=== PATIENT | male | born 1950 | race Caucasian/White ===

== ENCOUNTER 2018-01-09 12:22 | Emergency (ER) | payer MEDICARE ==
[~2018-01-09] VITALS: Ht 180.3 cm; Wt 79.5 kg
[2018-01-09 12:53] LABS: BASOPHILS % (AUTO) 0.5 % (0-1); EOSINOPHILS # (AUTO) 0.3 X10'3 (0-0.9); EOSINOPHILS % (AUTO) 3.6 % (0-6); HEMATOCRIT 42.9 % (42.0-52.0); LYMPHOCYTES # (AUTO) 2.2 X10'3 (1.1-4.8); LYMPHOCYTES % (AUTO) 29.3 % (21-51); MEAN CORPUSCULAR HEMOGLOBIN 34.2 PG (27.0-31.0); MEAN CORPUSCULAR HGB CONC 35.1 % (33.0-36.5); MEAN CORPUSCULAR VOLUME 97.6 FL (78-98); MEAN PLATELET VOLUME 7.8 FL (7.4-10.4); MONOCYTES # (AUTO) 0.8 X10'3 (0-0.9); MONOCYTES % (AUTO) 10.1 % (2-12); NEUTROPHILS # (AUTO) 4.2 X10'3 (1.8-7.7); NEUTROPHILS % (AUTO) 56.5 % (42-75); PLATELET COUNT 273 X10'3 (140-440); RED BLOOD COUNT 4.39 X10'6 (4.70-6.10); RED CELL DISTRIBUTION WIDTH 12.9 % (11.5-14.5); WHITE BLOOD COUNT 7.4 X10'3 (4.5-11.0)
[2018-01-09 13:03] LABS: PARTIAL THROMBOPLASTIN TIME 24 SECONDS (22-32)
[2018-01-09 13:08] LABS: ALANINE AMINOTRANSFERASE 18 U/L (12-78); ALBUMIN 3.2 G/DL (3.4-5.0); ALBUMIN/GLOBULIN RATIO 0.7 (1.1-1.5); ALKALINE PHOSPHATASE 130 IU/L (46-116); ASPARTATE AMINO TRANSFERASE 18 U/L (10-37); BILIRUBIN,TOTAL 0.3 MG/DL (0.1-1.0); BLOOD UREA NITROGEN 6 MG/DL (7-18); BUN/CREATININE RATIO 6.5 (5.4-32.0); CALCIUM 9.4 MG/DL (8.5-10.1); CREATININE 0.92 MG/DL (0.60-1.10); GLUCOSE 175 MG/DL (70-104); TOTAL CARBON DIOXIDE 27.2 MMOL/L (24-32); TOTAL PROTEIN 7.8 G/DL (6.4-8.2); eGFR 82 ML/MIN
[2018-01-09 13:15] LABS: ANION GAP 10 (8-16); CHLORIDE 100 MMOL/L (99-107); POTASSIUM 4.3 MMOL/L (3.5-5.1); SODIUM 137 MMOL/L (135-145)
[2018-01-09 13:56] VITALS: BP 139/88
== END 2018-01-09 14:03 | disposition home or self-care (01) ==
LOC: ER 12:22
DX: R07.89 Other chest pain (principal); M25.512 Pain in left shoulder; F17.200 Nicotine dependence, unspecified, uncomplicated; G89.29 Other chronic pain; I25.10 Atherosclerotic heart disease of native coronary artery without angina pectoris; Z88.2 Allergy status to sulfonamides; Z95.1 Presence of aortocoronary bypass graft
CPT/HCPCS: 36415; 71045; 73030; 80053; 84484; 85025; 85610; 85730; 93005; 99285

== ENCOUNTER 2018-01-11 09:09 | Day surgery (SDC) | payer MEDICARE ==
[~2018-01-11] VITALS: Ht 175.3 cm; Wt 87.9 kg
[2018-01-11] VITALS (10 sets, daily range): BP systolic 111–136; BP diastolic 70–96
[2018-01-11] MEDS ORDERED: diphenhydrAMINE 25mg capsule PO PRN (09:45)
[2018-01-11] MEDS ORDERED: LORazepam 0.5 MG tablet PO PRN (09:45)
[2018-01-11] MEDS ORDERED: normal saline 1000ml 1,000 ML IV SCH (09:45)
[2018-01-11] MEDS ORDERED: INSU100C10 SQ (09:58)
[2018-01-11] MEDS ORDERED: OXYC-658 PO (09:58)
[2018-01-11] MEDS ORDERED: iohexol 350MG/ML 100ml bottle IV ONE ×2 (10:38→11:44)
[2018-01-11] MEDS ORDERED: nitroGLYCERIN-Tridil 50MG/D5W 250 ML IV ONE (10:38)
[2018-01-11] MEDS ORDERED: LIDOcaine 1% w/EPI 1:100,000 30ml vial (MDV) ONE (10:38)
[2018-01-11] MEDS ORDERED: iohexol 350 MG/ML 50ML vial IV ONE (10:38)
[2018-01-11] MEDS ORDERED: heparin 1,000unit/ml 10ml vial 10 ML ONE (10:38)
[2018-01-11] MEDS ORDERED: midazolam 2 mg/2 ml injection ONE (11:08)
[2018-01-11] MEDS ORDERED: fentaNYL/PF 50MCG/1 ML 2ML syringe ONE (11:09)
[2018-01-11] MEDS ORDERED: oxyCODONE IR 5mg (immed. release) tablet PO PRN (13:05)
[2018-01-11] MEDS ORDERED: insulin Lispro (HumaLOG) vial - multi-dose SQ SCH (21:00)
== END 2018-01-11 17:00 | disposition home or self-care (01) ==
LOC: SSTAY O 09:09
PROVIDERS: ATTEND Internal Medicine Cardiovascular Disease
DX: I25.118 Atherosclerotic heart disease of native coronary artery with other forms of angina pectoris (principal); I10 Essential (primary) hypertension; E11.9 Type 2 diabetes mellitus without complications; E78.5 Hyperlipidemia, unspecified; Z95.1 Presence of aortocoronary bypass graft; Z86.711 Personal history of pulmonary embolism; Z98.890 Other specified postprocedural states; Z86.73 Personal history of transient ischemic attack (TIA), and cerebral infarction without residual deficits
CPT/HCPCS: 82948; 93005; 93459; 93567; 99152; 99153; A6257; C1760; C1769; J1644; J2250; J3010; J3490; J7030; Q0163; Q9967; A4620

== ENCOUNTER 2018-09-13 13:30 | Outpatient (CLI) | payer MEDICARE ==
[~2018-09-13] VITALS: Ht 175.3 cm; Wt 79.4 kg
[~2018-09-13 13:30] MED LIST: INSU100C10 SQ; OXYC-658 PO
[2018-09-13] MEDS ORDERED: INSU100C10 SQ (15:35)
[2018-09-13] MEDS ORDERED: LANTUS (15:35)
[2018-09-13 15:49] LABS: BASOPHILS # (AUTO) 0.1 X10'3 (0-0.2); BASOPHILS % (AUTO) 0.9 % (0-1); EOSINOPHILS # (AUTO) 0.2 X10'3 (0-0.9); EOSINOPHILS % (AUTO) 3.5 % (0-6); LYMPHOCYTES # (AUTO) 1.7 X10'3 (1.1-4.8); LYMPHOCYTES % (AUTO) 27.4 % (21-51); MEAN CORPUSCULAR HGB CONC 34.5 g/dL (33.0-36.5); MEAN CORPUSCULAR VOLUME 98.5 FL (78-98); MONOCYTES # (AUTO) 0.4 X10'3 (0-0.9); MONOCYTES % (AUTO) 7.3 % (2-12); NEUTROPHILS # (AUTO) 3.7 X10'3 (1.8-7.7); NEUTROPHILS % (AUTO) 60.9 % (42-75); PRE OP HEMATOCRIT 47.8 % (42.0-52.0); PRE OP HEMOGLOBIN 16.5 g/dL (14.0-17.9); PRE OP PLATELET COUNT 206 X10'3 (140-440); RED BLOOD COUNT 4.85 X10'6 (4.70-6.10); RED CELL DISTRIBUTION WIDTH 13.6 % (11.5-14.5)
[2018-09-13 15:58] LABS: HEMOGLOBIN A1C 9.8 % (4.5-6.2)
[2018-09-13 16:14] LABS: ALBUMIN 3.4 G/DL (3.4-5.0); ALBUMIN/GLOBULIN RATIO 0.8 (1.1-1.5); ALKALINE PHOSPHATASE 113 IU/L (46-116); BLOOD UREA NITROGEN 8 MG/DL (7-18); BUN/CREATININE RATIO 9.6 (5.4-32.0); CHLORIDE 97 MMOL/L (99-107); CREATININE 0.83 MG/DL (0.60-1.10); PRE OP ALT 22 U/L (30-65); PRE OP ANION GAP 10 (8-16); PRE OP AST 20 U/L (10-37); PRE OP BILIRUB, TOTAL 0.8 MG/DL (0.0-1.0); PRE OP POTASSIUM 4.1 MMOL/L (3.4-5.1); PRE OP SODIUM 135 MMOL/L (135-145); TOTAL CARBON DIOXIDE 28.2 MMOL/L (24-32); TOTAL PROTEIN 7.7 G/DL (6.4-8.2); eGFR > 90 ML/MIN
[2018-09-13 16:16] LABS: PRE OP GLUCOSE 327 MG/DL (70-104)
[2018-09-26] MEDS ORDERED: ringers solution, lacted 1,000 ML IV SCH (05:00)
[2018-09-26] MEDS ORDERED: famotidine 20mg tablet PO ONE (05:30)
== END 2018-09-13 23:59 | disposition home or self-care (01) ==
LOC: PRE-OP 13:30 → EDSTATUS 09-26 07:30
PROVIDERS: ATTEND Orthopaedic Surgery
DX: Z01.812 Encounter for preprocedural laboratory examination (principal); M75.112 Incomplete rotator cuff tear or rupture of left shoulder, not specified as traumatic; M25.512 Pain in left shoulder
CPT/HCPCS: 36415; 80053; 83036; 85025; 87070; 93005